=== PATIENT | male | born 1960 | race African-American/Black ===

== ENCOUNTER 2018-11-19 15:50 | Emergency (ER) | payer MEDICARE, OTHER ==
[2018-11-19 16:48] LABS: ADD MAN DIFF? NO
[2018-11-19] MEDS: IPRATROPIUM (NEB) 0.5 MG/2.5 ML AMP NEB (16:51)
[2018-11-19] MEDS: LEVALBUTEROL (NEB) 1.25 MG/0.5 ML AMP INH (16:51)
[2018-11-19 16:52] LABS: BASOPHIL # 0.1 10^3/ul (0.0-0.1); EOSINOPHILS # 0.2 10^3/ul (0.0-0.5); EOSINOPHILS % 3.3 % (0.0-7.0); HEMATOCRIT 35.8 % (42.0-52.0); HEMOGLOBIN 11.4 g/dl (14.0-18.0); LYMPHOCYTES # 1.8 10^3/ul (0.8-2.9); LYMPHOCYTES % 24.7 % (15.0-51.0); MEAN CORPUSCULAR HEMOGLOBIN 30.5 pg (29.0-33.0); MEAN CORPUSCULAR HGB CONC 31.8 g/dl (32.0-37.0); MEAN CORPUSCULAR VOLUME 95.7 fl (82.0-101.0); MEAN PLATELET VOLUME 9.6 fl (7.4-10.4); MONOCYTE # 0.9 10^3/ul (0.3-0.9); MONOCYTES % 11.7 % (0.0-11.0); NEUTROPHIL # 4.3 10^3/ul (1.6-7.5); PLATELET COUNT 430 10^3/UL (140-415); RED BLOOD COUNT 3.74 10^6/ul (4.70-6.10); RED CELL DISTRIBUTION WIDTH 14.6 % (11.5-14.5)
[2018-11-19 16:52] LABS: WHITE BLOOD COUNT 7.3 10^3/ul (4.8-10.8)
[2018-11-19] MEDS: HYDROCODONE/APAP (5/325) TAB PO (17:15)
[2018-11-19 17:19] LABS: ALANINE AMINOTRANSFERASE 14 IU/L (13-69); ALBUMIN 3.8 g/dl (3.3-4.9); ALBUMIN/GLOBULIN RATIO 1.02; ALKALINE PHOSPHATASE 78 IU/L (42-121); ANION GAP 8 (5-13); ASPARTATE AMINO TRANSFERASE 24 IU/L (15-46); BLOOD UREA NITROGEN 13 mg/dl (7-20); CALCIUM 9.4 mg/dl (8.4-10.2); CARBON DIOXIDE 26 mmol/L (21-31); CHLORIDE 105 mmol/L (97-110); CREATININE 0.71 mg/dl (0.61-1.24); Estimated GFR > 60 mL/min (>60); GLUCOSE 106 mg/dl (70-220); POTASSIUM 3.8 mmol/L (3.5-5.1); SODIUM 139 mmol/L (135-144); TOTAL PROTEIN 7.5 g/dl (6.1-8.1)
[2018-11-19 17:22] LABS: ACETAMINOPHEN < 10.0 ug/ml (10.0-30.0); ETHANOL < 10.0 mg/dl (0-0); SALICYLATE < 1.0 mg/dl (5.0-30.0)
[2018-11-19 19:18] LABS: ADD UMIC NO; UR ASCORBIC ACID NEGATIVE (NEGATIVE); UR BILIRUBIN (Dip) NEGATIVE (NEGATIVE); UR BLOOD (Dip) NEGATIVE (NEGATIVE); UR CLARITY CLEAR (CLEAR); UR COLOR STRAW (YELLOW); UR GLUCOSE (Dip) NEGATIVE (NEGATIVE); UR KETONES (Dip) NEGATIVE (NEGATIVE); UR LEUKOCYTE ESTERASE (Dip) NEGATIVE Leu/ul (NEGATIVE); UR NITRITE (Dip) NEGATIVE (NEGATIVE); UR SPECIFIC GRAVITY (Dip) 1.009 (1.003-1.030); UR TOTAL PROTEIN (Dip) NEGATIVE (NEGATIVE); UR UROBILINOGEN (Dip) NEGATIVE (NEGATIVE)
[2018-11-19 19:41] LABS: AMPHETAMINE/METHAMPHETAMINE NEGATIVE (NEGATIVE); BARBITURATES NEGATIVE (NEGATIVE); BENZODIAZEPINES POSITIVE (NEGATIVE); CANNABINOIDS POSITIVE (NEGATIVE)
[2018-11-19 19:42] LABS: COCAINE NEGATIVE (NEGATIVE); OPIATES POSITIVE (NEGATIVE)
[2018-11-20] MEDS: ALPRAZOLAM 1 MG TAB PO (04:35)
[2018-11-20] MEDS: HYDROCODONE/APAP (5/325) TAB PO (04:35)
[2018-11-20] MEDS ORDERED: LORAZEPAM 1 MG TAB PO (12:00)
[2018-11-20] MEDS ORDERED: ONDANSETRON (ODT) 4 MG TAB ODT (17:06)
[2018-11-20] MEDS: HYDROCODONE/APAP (10/325) TAB PO (17:14)
== END 2018-11-20 19:39 ==
LOC: E/R 15:50
DX: R45.851 Suicidal ideations (principal); R40.2142 Coma scale, eyes open, spontaneous, at arrival to emergency department; D64.9 Anemia, unspecified; R40.2362 Coma scale, best motor response, obeys commands, at arrival to emergency department; R40.2252 Coma scale, best verbal response, oriented, at arrival to emergency department; J44.9 Chronic obstructive pulmonary disease, unspecified; Z86.73 Personal history of transient ischemic attack (TIA), and cerebral infarction without residual deficits
CPT/HCPCS: 36415; 80053; 80307; 81003; 85025; 99285-25